=== PATIENT | male | born 1955 | race Caucasian/White ===

== ENCOUNTER → 2019-09-09 06:39 | Outpatient (CLI) | payer BC, SELFPAY ==
--- NOTE | 2019-09-09 12:16 | STRESSREP ---
Stress Test Report Date: 09-09-19 Procedure: Exercise tolerance test/imaging study Indications: Chest pain; palpitations Consent: Per the patient Procedure: The patient exercised on a Ju[place]o protocol for 5 minutes completing Stage I and 2 minutes of Stage II achieving a peak heart rate of 129 bpm (81 % predicted maximal heart rate) with a peak blood pressure 170/100 mmHg and a peak MET capacity of 7 METs. The baseline ECG demonstrated sinus bradycardia. The peak exercise ECG demonstrated no obvious ECG changes. There were occasional to frequent PVCs during exercise and ventricular bigeminy during exercise. The functional capacity was considered decreased. There was no complaint of chest discomfort during exercise or recovery. The examination was discontinued secondary to dyspnea. Impression: 1. Technically adequate (percent predicted maximal heart rate greater than 85%) exercise tolerance test 2. Peak exercise ECG with no obvious ECG changes 3. There were occasional frequent PVCs during exercise and ventricular bigeminy during exercise 4. Nuclear images pending Myocardial perfusion imaging study: Technique: The patient was injected with 11.8 mCi of technetium 99m Cardiolite and subsequently rest SPECT Cardiolite nuclear imaging was obtained in the horizontal long, vertical long, and short axis views. The patient exercised on a Juancho protocol for 5 minutes completing Stage I and 2 minutes of Stage II achieving a peak heart rate of 129 bpm (81 % predicted maximal heart rate) with a peak blood pressure 170/100 mmHg and a peak MET capacity of 7 METs. The patient was injected with 35.0 mCi of technetium 99m Cardiolite and subsequently stress SPECT Cardiolite nuclear imaging was obtained in the horizontal long, vertical long, and short axis views. A gated Cardiolite study at peak stress was obtained. Interpretation: Rest and stress SPECT Cardiolite nuclear imaging status post realignment, normalization, and attenuation correction, demonstrates the appearance of relative uniform tracer uptake and myocardial perfusion appearing within normal limits. There is end systolic thickening and brightening. The gated Cardiolite study demonstrates myocardial thickening and inward wall motion. The reported LVEF is 64 %. Impression: 1. Rest and stress SPECT Cardiolite nuclear imaging demonstrate relative uniform tracer uptake and myocardial perfusion appearing within normal limits. 2. The gated Cardiolite study reports an LVEF of 64 %. This note was generated with [employer]ation software. It may contain incorrect words, spelling, and punctuation that were not noted in checking the note before signing.
== END ==
PROVIDERS: Family Provider Family Medicine; PCP Family Medicine; Referring Provider Family Medicine; Visit Provider Family Medicine
DX: R07.89 Other chest pain (principal)
CPT/HCPCS: 78452; 93017; A9500; A4216